=== PATIENT | female | born 1980 | race American Indian/Alaskan Native ===

== ENCOUNTER 2019-05-11 03:59 | Emergency (ER) | payer SELFPAY ==
[2019-05-11] MEDS ORDERED: LIDOCAINE-MPF (1%) 10 MG/1 ML VIAL 5 ML INFILTRATI ONE (05:40)
[2019-05-11] MEDS ORDERED: dexAMETHasone 4 MG/ML VIAL PO ONE (05:40)
--- NOTE | 2019-05-11 05:50 | Emergency Department Report ---
ED ENT HPI - General Chief complaint: Sore Throat Stated complaint: SORE THROAT, LEFT EAR PAIN Time Seen by Provider: 05/11/19 05:40 Source: patient Mode of arrival: Ambulatory Limitations: No Limitations - History of Present Illness MD complaint: sore throat - Related Data Previous Rx's Medication Instructions Recorded Last Taken Type Amoxicillin/Potassium Clav 1 each PO BID #20 tablet 05/11/19 Unknown Rx [Augmentin 875-125 Tablet] Chlorhexidine Mouthwash [Peridex] 15 ml MM BID #473 bottle 05/11/19 Unknown Rx Ketorolac [Toradol] 10 mg PO Q6H PRN #15 tablet 05/11/19 Unknown Rx Lidocaine Viscous 2% 5 ml MM Q3H PRN #120 udc 05/11/19 Unknown Rx Allergies Allergy/AdvReac Type Severity Reaction Status Date / Time No Known Allergies Allergy Unverified 05/11/19 04:08 ED Dental HPI - General Chief complaint: Sore Throat Stated complaint: SORE THROAT, LEFT EAR PAIN Time Seen by Provider: 05/11/19 05:40 Source: patient Mode of arrival: Ambulatory Limitations: No Limitations - Related Data Previous Rx's Medication Instructions Recorded Last Taken Type Amoxicillin/Potassium Clav 1 each PO BID #20 tablet 05/11/19 Unknown Rx [Augmentin 875-125 Tablet] Chlorhexidine Mouthwash [Peridex] 15 ml MM BID #473 bottle 05/11/19 Unknown Rx Ketorolac [Toradol] 10 mg PO Q6H PRN #15 tablet 05/11/19 Unknown Rx Lidocaine Viscous 2% 5 ml MM Q3H PRN #120 udc 05/11/19 Unknown Rx Allergies Allergy/AdvReac Type Severity Reaction Status Date / Time No Known Allergies Allergy Unverified 05/11/19 04:08 ED Review of Systems ROS: Stated complaint: SORE THROAT, LEFT EAR PAIN Other details as noted in HPI Comment: All other systems reviewed and negative ED Past Medical Hx - Past Medical History Previous Medical History?: No - Surgical History Past Surgical History?: No - Social History Smoking Status: Current Every Day Smoker Substance Use Type: None - Medications Home Medications: Home Medications Medication Instructions Recorded Confirmed Last Taken Type Amoxicillin/Potassium Clav 1 each PO BID #20 tablet 05/11/19 Unknown Rx [Augmentin 875-125 Tablet] Chlorhexidine Mouthwash [Peridex] 15 ml MM BID #473 bottle 05/11/19 Unknown Rx Ketorolac [Toradol] 10 mg PO Q6H PRN #15 tablet 05/11/19 Unknown Rx Lidocaine Viscous 2% 5 ml MM Q3H PRN #120 udc 05/11/19 Unknown Rx ED Physical Exam - General Limitations: No Limitations General appearance: alert, in no apparent distress - Head Head exam: Present: atraumatic, normocephalic - Eye Eye exam: Present: normal appearance, PERRL, EOMI Pupils: Present: normal accommodation - ENT ENT exam: Present: normal exam, mucous membranes moist, other (for an x-ray at with swollen no exudate. Uvula midline no drooling. No obvious abscess is apparent at current.) - Neck Neck exam: Present: normal inspection, tenderness. Absent: full ROM, lymphadenopathy - Respiratory Respiratory exam: Present: normal lung sounds bilaterally. Absent: respiratory distress - Cardiovascular Cardiovascular Exam: Present: regular rate, normal rhythm. Absent: systolic murmur, diastolic murmur, rubs, gallop - GI/Abdominal GI/Abdominal exam: Present: soft, normal bowel sounds - Extremities Exam Extremities exam: Present: normal inspection - Back Exam Back exam: Present: normal inspection - Neurological Exam Neurological exam: Present: alert, oriented X3 - Psychiatric Psychiatric exam: Present: normal affect, normal mood - Skin Skin exam: Present: warm, dry, intact, normal color. Absent: rash Critical care attestation.: If time is entered above; I have spent that time in minutes in the direct care of this critically ill patient, excluding procedure time. ED Disposition Clinical Impression: Pharyngitis Disposition: TO HOME OR SELFCARE Is pt being admited?: No Does the pt Need Aspirin: No Condition: Stable Instructions: Strep Throat (ED), Pharyngitis (ED) Referrals: [facility] [Provider Group] - 3-5 Days
== END 2019-05-11 06:30 | disposition home or self-care (01) ==
LOC: ED 03:59
DX: J02.9 Acute pharyngitis, unspecified (principal); F17.200 Nicotine dependence, unspecified, uncomplicated; Z79.899 Other long term (current) drug therapy
CPT/HCPCS: 96372; 99282; J0696; J1100

== ENCOUNTER 2019-05-26 15:00 | Emergency (ER) | payer SELFPAY ==
[2019-05-26] MEDS ORDERED: ONDANSETRON 4 MG ODT TAB PO ONE ×2 (15:45)
[2019-05-26] MEDS ORDERED: ONDANSETRON 4 MG ODT TAB ONE (15:48)
--- NOTE | 2019-05-26 15:48 | Event Note ---
ED Screening Note Date of service: 05/26/19 Time: 15:44 ED Screening Note: This is a 39 y.o. F. that presents to the ER with nausea, vomiting, and abdominal pain since 5 AM. Taking pepto bismol. Current smoker - recent travel, unusual foods, fever, chills, chest pain, palpitations, or weakness This initial assessment/diagnostic orders/clinical plan/treatment(s) is/are subject to change based on patients health status, clinical progression and re- assessment by fellow clinical providers in the ED. Further treatment and workup at subsequent clinical providers discretion. Patient/guardian urged not to elope from the ED as their condition may be serious if not clinically assessed and ma naged. Initial orders include: Labs and CT of abdomen and pelvis
[2019-05-26 17:03] LABS: Red Blood Count 4.51 M/mm3 (3.65-5.03)
[2019-05-26 17:04] LABS: Basophils # (Auto) 0.1 K/mm3 (0.0-0.1); Basophils % (Auto) 1.1 % (0.0-1.8); Eosinophils % (Auto) 0.4 % (0.0-4.3); Hematocrit 30.6 % (30.3-42.9); Hemoglobin 9.6 gm/dl (10.1-14.3); Lymphocytes % (Auto) 10.7 % (13.4-35.0); Mean Corpuscular HGB Conc 31 % (30-34); Monocytes # (Auto) 0.4 K/mm3 (0.0-0.8); Monocytes % (Auto) 4.6 % (0.0-7.3); Platelet Count 520 K/mm3 (140-440)
[2019-05-26 17:11] LABS: Mean Corpuscular Volume 68 fl (79-97); Red Cell Distribution Width 20.1 % (13.2-15.2)
[2019-05-26 17:16] LABS: Alanine Aminotransferase 11 units/L (7-56); Albumin 3.7 g/dL (3.9-5); BUN/Creatinine Ratio 15; Blood Urea Nitrogen 9 mg/dL (7-17); Calcium 9.3 mg/dL (8.4-10.2); Hemolysis Index 22
[2019-05-26] MEDS ORDERED: FAMOTIDINE 20 MG/2 ML INJ IV ONE (17:38)
[2019-05-26] MEDS ORDERED: SODIUM CHLORIDE 0.9% 1000 ML 1,000 ML IV ONE (17:38)
[2019-05-26] MEDS ORDERED: ONDANSETRON 4 MG/2 ML INJ IV ONE (17:38)
[2019-05-26] MEDS ORDERED: KETOROLAC 30 MG/1 ML INJ IV ONE (17:38)
[2019-05-26] MEDS ORDERED: HALOPERIDOL LACTATE 5 MG/1 ML INJ IM ONE ×2 (18:37→22:05)
--- NOTE | 2019-05-26 19:52 | Emergency Department Report ---
ED Abdominal Pain HPI - General Chief Complaint: Nausea/Vomiting/Diarrhea Stated Complaint: NAUSEA/VOMITING Time Seen by Provider: 05/26/19 15:44 Source: patient Mode of arrival: Ambulatory Limitations: No Limitations - History of Present Illness Initial Comments: 39-year-old obese female presents to the emergency room for nausea vomiting diarrhea and abdominal pain or sick this morning proxy 5 AM. Patient reports that the pain is in the upper abdomen area. Patient does not recall eating old food. Patient reports her pain is 8 out of 10. Patient denies any past medical history denies any known drug allergies and no current medications. MD Complaint: abdominal pain -: This morning Time: 05:00 Location: LUQ, RUQ Radiation: none Severity scale (0 -10): 6 - Related Data Previous Rx's Medication Instructions Recorded Last Taken Type Amoxicillin/Potassium Clav 1 each PO BID #20 tablet 05/11/19 Unknown Rx [Augmentin 875-125 Tablet] Chlorhexidine Mouthwash [Peridex] 15 ml MM BID #473 bottle 05/11/19 Unknown Rx Ketorolac [Toradol] 10 mg PO Q6H PRN #15 tablet 05/11/19 Unknown Rx Lidocaine Viscous 2% 5 ml MM Q3H PRN #120 udc 05/11/19 Unknown Rx Dicyclomine [Bentyl] 10 mg PO QID #20 capsule 05/26/19 Unknown Rx Ibuprofen [Motrin 800 MG tab] 800 mg PO Q8HR PRN #15 tablet 05/26/19 Unknown Rx Promethazine [Phenergan] 25 mg PO Q8HR PRN #15 tab 05/26/19 Unknown Rx Allergies Allergy/AdvReac Type Severity Reaction Status Date / Time No Known Allergies Allergy Unverified 05/11/19 04:08 ED Review of Systems ROS: Stated complaint: NAUSEA/VOMITING Other details as noted in HPI ED Past Medical Hx - Past Medical History Previous Medical History?: No - Surgical History Past Surgical History?: No - Social History Smoking Status: Current Every Day Smoker Substance Use Type: None - Medications Home Medications: Home Medications Medication Instructions Recorded Confirmed Last Taken Type Amoxicillin/Potassium Clav 1 each PO BID #20 tablet 05/11/19 Unknown Rx [Augmentin 875-125 Tablet] Chlorhexidine Mouthwash [Peridex] 15 ml MM BID #473 bottle 05/11/19 Unknown Rx Ketorolac [Toradol] 10 mg PO Q6H PRN #15 tablet 05/11/19 Unknown Rx Lidocaine Viscous 2% 5 ml MM Q3H PRN #120 udc 05/11/19 Unknown Rx Dicyclomine [Bentyl] 10 mg PO QID #20 capsule 05/26/19 Unknown Rx Ibuprofen [Motrin 800 MG tab] 800 mg PO Q8HR PRN #15 tablet 05/26/19 Unknown Rx Promethazine [Phenergan] 25 mg PO Q8HR PRN #15 tab 05/26/19 Unknown Rx ED Physical Exam - General Limitations: No Limitations ED Course Vital Signs 05/26/19 15:44 Temperature 97.8 F Pulse Rate 73 Respiratory 20 Rate Blood Pressure 133/91 O2 Sat by Pulse 100 Oximetry ED Medical Decision Making - Lab Data Result diagrams: 05/26/19 16:10 05/26/19 16:10 Laboratory Tests 05/26/19 05/26/19 05/26/19 16:10 16:10 16:10 WBC 9.5 RBC 4.51 Hgb 9.6 L Hct 30.6 MCV 68 L MCH 21 L MCHC 31 RDW 20.1 H Plt Count 520 H Lymph % (Auto) 10.7 L [place] % (Auto) 4.6 Eos % (Auto) 0.4 Baso % (Auto) 1.1 Lymph # 1.0 L [place] # 0.4 Eos # 0.0 Baso # 0.1 Seg Neutrophils % 83.2 H Seg Neutrophils # 7.9 H Sodium 134 L Potassium 4.0 Chloride 103.2 Carbon Dioxide 19 L Anion Gap 16 BUN 9 Creatinine 0.6 L Estimated GFR > 60 BUN/Creatinine Ratio 15 Glucose 119 H Calcium 9.3 Total Bilirubin 0.40 AST 22 ALT 11 Alkaline Phosphatase 63 Total Protein 8.3 H Albumin 3.7 L Albumin/Globulin Ratio 0.8 Lipase 21 HCG, Qual Negative - Radiology Data Radiology results: report reviewed Patient: JAKOB AU MR#: [id number] : 1980 Acct:[id number] Age/Sex: 39 / F ADM Date: 05/26/19 Loc: ED Attending Dr: Ordering Physician: ERASMO SULLIVAN Date of Service: 05/26/19 Procedure(s): US abdomen complete Accession Number(s): [id number] cc: ERASMO SULLIVAN ULTRASOUND ABDOMEN, COMPLETE INDICATION: Upper abdominal pain. COMPARISON: None available. FINDINGS: Pancreas: Normal. Abdominal Aorta: Normal. IVC: Normal. Liver: Liver is mildly echogenic most likely related to mild hepatic steatosis. No focal mass identified within the liver. Gallbladder: Normal. No evidence for gallstones or gallbladder wall thickening. Bile ducts: Normal. Common Bile Duct measures 4 mm. Right Kidney: Normal. Left Kidney: Normal. Spleen: Normal. Free fluid: None. Additional Findings: Incidentally noted is a hypoechoic oval mass in the right lower abdomen, just slightly inferior to the umbilicus measuring 6.6 x 2.4 x 3.6 cm. In a portion of the mass, there appear to be antral follicles suggesting this may be the right ovary with associated dilated fallopian tube. IMPRESSION: 1. No acute finding within the abdomen. 2. Incidental finding of complex structure in the right lower abdomen, slightly inferior to the umbilicus, possibly representing the right ovary and associated dilated fallopian tube. If this correlates with patient's site of pain, CT abdomen/pelvis may provide additional information, if clinically warranted. Signer Name: Christelle Go MD Signed: 05/26/2019 7:57 PM Workstation Name: [id number] Transcribed By: JR Dictated By: Christelle Go MD Electronically Authenticated By: Christelle Go MD Signed Date/Time: 05/26/191956 DD/ 53 TD/TT: - Medical Decision Making 39-year-old obese female presents to the emergency room for nausea vomiting diarrhea and abdominal pain or sick this morning proxy 5 AM. Patient reports that the pain is in the upper abdomen area. Patient does not recall eating any ordinary food. Patient reports her pain is 8 out of 10. Patient denies any past medical history denies any known drug allergies and no current medications. Critical care attestation.: If time is entered above; I have spent that time in minutes in the direct care of this critically ill patient, excluding procedure time. ED Disposition Clinical Impression: Abdominal pain Disposition: DC-01 TO HOME OR SELFCARE Is pt being admited?: No Does the pt Need Aspirin: No Condition: Stable Instructions: Acute Abdominal Pain (ED), Acute Nausea and Vomiting (ED) Additional Instructions: Labs are stable. US show no acute abnormalities. Show a ovary cyst. 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
--- NOTE | 2019-05-26 20:01 | Ultrasound Report ---
ULTRASOUND ABDOMEN, COMPLETE INDICATION: Upper abdominal pain. COMPARISON: None available. FINDINGS: Pancreas: Normal. Abdominal Aorta: Normal. IVC: Normal. Liver: Liver is mildly echogenic most likely related to mild hepatic steatosis. No focal mass identif ied within the liver. Gallbladder: Normal. No evidence for gallstones or gallbladder wall thickening. Bile ducts: Normal. Common Bile Duct measures 4 mm. Right Kidney: Normal. Left Kidney: Normal. Spleen: Normal. Free fluid: None. Additional Findings: Incidentally noted is a hypoechoic oval mass in the right lower abdomen, just sl ightly inferior to the umbilicus measuring 6.6 x 2.4 x 3.6 cm. In a portion of the mass, there appear to be antral follicles suggesting this may be the right ovary with associated dilated fallopian tube . IMPRESSION: 1. No acute finding within the abdomen. 2. Incidental finding of complex structure in the right lower abdomen, slightly inferior to the umbil icus, possibly representing the right ovary and associated dilated fallopian tube. If this correlates with patient's site of pain, CT abdomen/pelvis may provide additional information, if clinically war ranted. Signer Name: Christelle Go MD Signed: 05/26/2019 7:57 PM Workstation Name: [email or web address]
[2019-05-26] MEDS ORDERED: diphenhydrAMINE 50 MG/ML VIAL IV ONE (22:05)
[2019-05-26 23:38] VITALS: BP 124/88
== END 2019-05-26 23:38 | disposition home or self-care (01) ==
LOC: ED 15:00
DX: R10.12 Left upper quadrant pain (principal); R10.11 Right upper quadrant pain; R11.2 Nausea with vomiting, unspecified; R19.7 Diarrhea, unspecified; F17.200 Nicotine dependence, unspecified, uncomplicated; Z79.899 Other long term (current) drug therapy
CPT/HCPCS: 36415; 76700; 80053; 83690; 84703; 85025; 96361; 96372; 96374; 96375; 99284; J1200; J1630; J1885; J2405; J7030; Q0162